=== PATIENT | female | born 1950 | race Caucasian/White ===

== ENCOUNTER 2020-06-08 16:12 | Emergency (ER) | payer MEDICARE, BC ==
--- NOTE | 2020-06-08 16:35 | CR ---
PROCEDURE INFORMATION: Exam: XR Abdomen, 1 View Exam date and time: 06/08/2020 4:20 PM Age: 69 years old Clinical indication: Constipation; Additional info: Constipation; No bm for one week; HX of obstructio TECHNIQUE: Imaging protocol: XR of the abdomen. Views: Frontal supine view of the abdomen. 1 View. COMPARISON: No relevant prior studies available. FINDINGS: Pleural space: There are no pleural effusions present. Gastrointestinal tract: There is a large amount of fecal material in the rectum. No over distention of bowel loops is seen. Bones/joints: The spine, sacroiliac joints, and hip joints are normal. IMPRESSION: Large amount of fecal material in the rectum.
--- NOTE | 2020-06-08 16:47 | EDM.PDOC ---
ED HPI GENERAL MEDICAL PROBLEM - General Stated Complaint: PRIVATE CAR Time Seen by Provider: 06/08/20 16:35 Source of Information: Reports: Patient, Old Records, RN, RN Notes Reviewed History Limitations: Reports: No Limitations - History of Present Illness INITIAL COMMENTS - FREE TEXT/NARRATIVE: Patient presents to the ED via personal vehicle with her for complaints of constipation. The patient reports a history of an unknown progressive neuromuscular disorder for which she is currently doctoring. She has been experiencing an increase in constipation as she lacks ability to "push" stool out. About 10 days ago home health assisted her with a suppository which produced little to no formed stool. The patient's states she has not had a formed stool for approximately one week, only watery fluid. The patient denies fever, shaking chills, palpitations, dyspepsia, nausea, vomiting, melena, or hematochezia. She does attest to two large sacral ulcers for which home health follows her. A riggs catheter was place about one month ago due to patient's inability to void. - Related Data Allergies Allergy/AdvReac Type Severity Reaction Status Date / Time propoxyphene HCl Allergy Confusion Verified 06/29/15 06:50 [From [facility]] Home Meds: Home Meds Esomeprazole [NexIUM] 40 mg PO DAILY 04/11/13 [History] Methylcellulose [Citrucel] 2 tab PO DAILY PRN 04/11/13 [History] Potassium Chloride 10 meq PO BID 04/11/13 [History] Propranolol [Inderal] 1 tab PO DAILY 04/11/13 [History] hydroCHLOROthiazide [Hydrochlorothiazide] 12.5 mg PO DAILY 04/11/13 [History] Cyanocobalamin (Vitamin B-12) [B-12] 1 tab PO DAILY 06/21/15 [History] Magnesium Oxide 1 tab PO BEDTIME 06/21/15 [History] Widen-3S/DHA/Epa/Fish Oil/D3 [Fish Wqw-Tnoqr-3-Vit D Softgel] 1 tab PO DAILY 06/21/15 [History] Sertraline [Zoloft] 0.5 tab PO BID 06/21/15 [History] Past Medical History HEENT History: Reports: Cataract Cardiovascular History: Reports: Hypertension, Other (See Below) Other Cardiovascular History: DYSLIPIDEMIA Respiratory History: Reports: None Gastrointestinal History: Reports: GERD, Irritable Bowel Syndrome Genitourinary History: Reports: None 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: , Other (See Below) Other CORNER BEAD OPERATOR History: PELVIC RELAXATION DISORDER; FIBERSYSTIC DISEASE OF BREAST; ATROPHIC VAGINITIS Neurological History: Reports: None, Other (See Below) Other Neuro History: 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 Psychiatric History: Reports: Panic Attack Endocrine/Metabolic History: Reports: Osteopenia Hematologic History: Reports: None Immunologic History: Reports: None Oncologic (Cancer) History: Reports: None Dermatologic History: Reports: None - Infectious Disease History Infectious Disease History: Reports: Chicken Pox, Measles - Past Surgical History HEENT Surgical History: Reports: Cataract Surgery, Tonsillectomy GI Surgical History: Reports: Appendectomy, Colonoscopy, EGD, Other (See Below) Female Surgical History: Reports: Hysterectomy, Salpingo-Oophorectomy ED ROS GENERAL - Review of Systems Review Of Systems: Comprehensive ROS is negative, except as noted in HPI. ED EXAM, GI/ABD - Physical Exam Exam: See Below Exam Limited By: No Limitations General Appearance: Alert, No Apparent Distress, Cachetic Throat/Mouth: Normal Inspection, Normal Voice, No Airway Compromise Respiratory/Chest: No Respiratory Distress, Lungs Clear, Normal Breath Sounds, No Accessory Muscle Use, Chest Non-Tender Cardiovascular: Normal Peripheral Pulses, Regular Rate, Rhythm, No Edema, No Gallop, No JVD, No Murmur, No Rub GI/Abdominal Exam: Soft, No Distention, No Abnormal Bruit, Pelvis Stable, Tender (To suprapubic area), Abnormal Bowel Sounds (Hyperactive). No: Rigid, Rebound (Female) Exam: Deferred Rectal (Female) Exam: Fecal Impaction, Tenderness (Two large sacral ulcers; Clean, no drainage). No: Mass, Rectal Fissure Back Exam: Normal Inspection, Full Range of Motion. No: CVA Tenderness (L), CVA Tenderness (R) Neurological: Alert, Oriented, CN II-XII Intact, Normal Cognition, No Motor/Sensory Deficits, Abnormal Gait (Patient ambulatory for transfer, utilizes wheelchair at baseline) Psychiatric: Normal Mood, Flat Affect Skin Exam: Warm, Dry, Erythema (Surrounding sacral ulcers), Pallor, Wound/Incision (Two large sacral ulcers; Clean, no drainage). No: Ecchymosis, Increased Warmth, Jaundice, Mottled, Petechiae Course - Vital Signs Last Recorded V/S: Last Vital Signs Temp 98.1 F 06/08/20 16:15 Pulse 62 06/08/20 16:15 Resp 16 06/08/20 16:15 BP 152/72 H 06/08/20 16:15 Pulse Ox 99 06/08/20 16:15 - Orders/Labs/Meds Orders: Active Orders 24 hr Category Date Time Status CULTURE URINE [RM] Stat Lab 06/08/20 17:15 Results Labs: Laboratory Tests 06/08/20 06/08/20 06/08/20 Range/Units 16:28 16:28 17:15 WBC 9.1 (5.0-10.0) 10^3/uL RBC 4.22 (4.2-5.4) 10^6/uL Hgb 13.2 D (12.0-16.0) g/dL Hct 39.9 (37.0-47.0) % MCV 94.5 (80-100) fL MCH 31.3 (27.0-34.0) pg MCHC 33.1 (33.0-35.0) g/dL Plt Count 299 (150-450) 10^3/uL Neut % (Auto) 70.2 (42.2-75.2) % Lymph % (Auto) 20.8 (20.5-50.1) % [place] % (Auto) 7.5 (2-8) % Eos % (Auto) 1.1 (1.0-3.0) % Baso % (Auto) 0.4 (0.0-1.0) % Sodium 137 (136-145) mmol/L Potassium 3.4 L (3.5-5.1) mmol/L Chloride 99 (98-107) mmol/L Carbon Dioxide 32 (21-32) mmol/L Anion Gap 9.4 (7-13) mEq/L BUN 12 (7-18) mg/dL Creatinine 0.86 (0.55-1.02) mg/dL Est Cr Clr Drug Dosing TNP Estimated GFR (MDRD) > 60 BUN/Creatinine Ratio 14.0 (No establ ref range) Glucose 99 (74-99) mg/dL Calcium 8.7 (8.5-10.1) mg/dL Magnesium 1.8 (1.8-2.4) mg/dL Total Bilirubin 0.4 (0.2-1.0) mg/dL AST 21 (15-37) U/L ALT 20 (14-59) U/L Alkaline Phosphatase 74 (46-116) U/L C-Reactive Protein < 0.2 (0.0-0.9) mg/dL Total Protein 6.2 L (6.4-8.2) g/dL Albumin 3.0 L (3.4-5.0) g/dL Globulin 3.2 Albumin/Globulin Ratio 0.94 Urine Color Yellow (YELLOW) Urine Appearance Slightly cloudy (CLEAR) Urine pH 7.5 (5.0-9.0) Ur Specific [place] 1.025 (1.005-1.030) Urine Protein Negative (NEGATIVE) Urine Glucose (UA) Negative (NEGATIVE) Urine Ketones Negative (NEGATIVE) Urine Occult Blood Small H (NEGATIVE) Urine Nitrite Negative (NEGATIVE) Urine Bilirubin Negative (NEGATIVE) Urine Urobilinogen 0.2 (0.2-1.0) mg/dL Ur Leukocyte Esterase Trace H (NEGATIVE) Urine RBC 0-5 /HPF Urine WBC 0-5 (0-5/HPF) /HPF Ur Epithelial Cells Few (NOT SEEN) /HPF Calcium Oxalate Crystal Rare (NOT SEEN) /HPF Urine Bacteria Rare (0-FEW/HPF) /HPF Meds: Medications Discontinued Medications Generic Name Dose Route Start Last Admin Trade Name Devq PRN Reason Stop Dose Admin Docusate Sodium/Benzocaine 1 each 06/08/20 18:22 06/08/20 18:28 Enemeez Plus Mini Enema RECTAL 06/08/20 18:23 1 each ONETIME ONE Administration - Radiology Interpretation Free Text/Narrative:: [facility] Final Radiology Report Call: [phone] assistance Online chat: [email or web address] Name: ROXIE ABRAHAM Age: 69Years F Date: 06/08/2020 SSN: -- : [id number] Study: CR ABDOMEN 1V FLAT Requesting Physician: Audrey Finn Images: 1 Addl Studies: Provided Clinical History: Constipation; No BM for one week; Hx of obstructio Contrast: Contrast Medium: Contrast Amount: Contrast Method: CONFIDENTIALITY STATEMENT This report is intended only for use by the referring physician, and only in accordance with law. If you received this in error, call [phone]. Page 1 of 1 PROCEDURE INFORMATION: Exam: XR Abdomen, 1 View Exam date and time: 06/08/2020 4:20 PM Age: 69 years old Clinical indication: Constipation; Additional info: Constipation; No bm for one week; HX of obstructio TECHNIQUE: Imaging protocol: XR of the abdomen. Views: Frontal supine view of the abdomen. 1 View. COMPARISON: No relevant prior studies available. FINDINGS: Pleural space: There are no pleural effusions present. Gastrointestinal tract: There is a large amount of fecal material in the rectum. No over distention of bowel loops is seen. Bones/joints: The spine, sacroiliac joints, and hip joints are normal. IMPRESSION: Large amount of fecal material in the rectum. Thank you for allowing us to participate in the care of your patient. Dictated and Authenticated by: Sarwat Oh MD 06/08/2020 4:35 PM Central Time ([place] & [place]) - Re-Assessments/Exams Free Text/Narrative Re-Assessment/Exam: 06/08/20 KUB remarkable for a large amount of stool within the rectum, no mass or obstruction appreciated. Digital exam positive for hard stool present within the rectum. Will treat patient with manual disimpaction followed by fleets enema until clear. Patient and verbalized understanding and agreement with the plan of care. Soap suds enema performed, as patient did not experience results from fleets or docusate enema. Discussed likely need for scheduled bowel regimen included in current health plan. Patient and verbalized understanding and agreement with the plan of care. Departure - Departure Time of Disposition: 20:36 Disposition: Home, Self-Care 01 Condition: Good Clinical Impression: Constipation due to neurogenic bowel - Discharge Information *PRESCRIPTION DRUG MONITORING PROGRAM REVIEWED*: Not Applicable *COPY OF PRESCRIPTION DRUG MONITORING REPORT IN PATIENT ROSENDO: Not Applicable Instructions: Neurogenic Bowel Referrals: Gisselle Priest NP [Primary Care Provider] - Forms: ED Department Discharge Additional Instructions: Follow up with your primary care provider regarding today's visit; You may need to include a scheduled bowel regimen into your health plan. - My Orders Last 24 Hours: My Active Orders 06/08/20 17:15 CULTURE URINE [RM] Stat - Assessment/Plan Last 24 Hours: My Active Orders 06/08/20 17:15 CULTURE URINE [] Stat
[2020-06-08] MEDS ORDERED: Benzocaine/Docusate Sodium 20-283 MG/5 ML Enema RECTAL ONE ×2 (16:50→18:22)
[2020-06-08 16:54] LABS: ANION GAP 9.4 mEq/L (7-13); CHLORIDE,CL 99 mmol/L (98-107); SODIUM,NA 137 mmol/L (136-145)
[2020-06-08 17:32] VITALS: BP 152/72; PULSE 62
== END 2020-06-08 21:50 | disposition home or self-care (01) ==
LOC: DL.ED 16:12
DX: K59.00 Constipation, unspecified (principal); K59.2 Neurogenic bowel, not elsewhere classified; L98.499 Non-pressure chronic ulcer of skin of other sites with unspecified severity; I10 Essential (primary) hypertension; K21.9 Gastro-esophageal reflux disease without esophagitis; Z88.8 Allergy status to other drugs, medicaments and biological substances; Z79.899 Other long term (current) drug therapy
CPT/HCPCS: 36415; 74018; 80053; 81001; 83735; 85025; 86140; 87086; 99283; A9270

== ENCOUNTER 2022-11-26 06:56 | Emergency (ER) | payer MEDICARE, BC ==
[2022-11-26 07:21] VITALS: BP 155/87; PULSE 66
[2022-11-26 07:23] LABS: APPEARANCE,URINE CLOUDY (CLEAR); BILIRUBIN,URINE NEGATIVE (NEGATIVE); COLOR,URINE YELLOW (YELLOW); GLUCOSE,URINE NEGATIVE (NEGATIVE); KETONES,URINE NEGATIVE (NEGATIVE); LEUKOCYTE ESTERASE,URINE MODERATE (NEGATIVE); NITRITE,URINE POSITIVE (NEGATIVE); OCCULT BLOOD,URINE LARGE (NEGATIVE); PH,URINE 7.5 (5.0-9.0); PROTEIN,URINE 30 (NEGATIVE); UROBILINOGEN,URINE 0.2 mg/dL (0.2-1.0)
[2022-11-26 07:38] LABS: AMORPHOUS SEDIMENT,URINE MODERATE /HPF (NOT SEEN); BACTERIA,URINE MANY /HPF (0-FEW/HPF); EPITHELIAL CELLS,URINE RARE /HPF (NOT SEEN); MUCUS,URINE FEW /LPF (NOT SEEN); WBC,URINE >100 /HPF (0-5/HPF)
[2022-11-26 07:39] LABS: CALCIUM OXALATE CRYSTALS,URINE FEW /HPF (NOT SEEN)
[2022-11-26] MEDS ORDERED: Sodium Chloride 0.9% 10 ML Syringe FLUSH PRN (08:05)
[2022-11-26] MEDS ORDERED: Levofloxacin/Dextrose 5%-Water 750 MG in Premix Bag 1 BAG IV ONE (08:29)
[2022-11-26] MEDS ORDERED: Sodium Chloride 0.9% 1,000 ML IV ONE (09:20)
== END 2022-11-26 10:26 | disposition home or self-care (01) ==
LOC: DL.ED 06:56
DX: T83.511A Infection and inflammatory reaction due to indwelling urethral catheter, initial encounter (principal); N39.0 Urinary tract infection, site not specified; I10 Essential (primary) hypertension; K21.9 Gastro-esophageal reflux disease without esophagitis; Z88.0 Allergy status to penicillin; Z79.899 Other long term (current) drug therapy
CPT/HCPCS: 81001; 87086; 87088; 87186; 96365; 99283-25; 99284; J1956; J3490